=== PATIENT | female | born 1990 | race American Indian/Alaskan Native ===

== ENCOUNTER 2018-11-11 11:14 | Emergency (ER) | payer OTHER ==
--- NOTE | 2018-11-11 11:21 | Emergency Department Report ---
Blank Doc - Documentation Documentation: 28 y o female presents for vaginal d/c, malodourous Denies history of previous otitis ordered. patient to be evaluated at [facility]
[2018-11-11 11:27] VITALS: BP 113/64
[2018-11-11 12:02] LABS: Bacteria,Urine 1+ /HPF (Negative); Bilirubin,Urine NEG (Negative); Blood,Urine NEG (Negative); Color,Urine Yellow (Yellow); Mucus,Urine 2+ /HPF; Protein,Urine <15 mg/dL mg/dL (Negative)
[2018-11-11 12:07] LABS: HCG Qualitative,Urine Negative (Negative)
--- NOTE | 2018-11-11 12:19 | Emergency Department Report ---
ED Female HPI - General Chief complaint: Urogenital-Female Stated complaint: VAGINAL DISCHARGE/CRAMPING Time Seen by Provider: 11/11/18 11:19 Source: patient Mode of arrival: Ambulatory Limitations: No Limitations - History of Present Illness Initial comments: This is a 28-year-old female presents to the emergency room with foul smelling vaginal discharge for 2 days. Patient's last period was 10/26/2018, A0. Patient states she douched twice with no improvement of symptoms. She denies pelvic pain, back pain, nausea or vomiting, hematuria, urinary frequency, urgency, or dysuria. MD Complaint: vaginal discharge Onset/Timin -: days(s) Location: labia Radiation: non-radiating Severity: mild Severity scale (0 -10): 0 Consistency: constant Improves with: none Worsens with: urination Are you Now?: No Last Menstrual Period: 10/26/18 EDC: 08/02/19 Associated Symptoms: vaginal discharge. denies: vaginal bleeding, abdominal pain, nausea/vomiting, fever/chills, headaches, loss of appetite, dysuria, hematuria, rash, seizure, shortness of breath, syncope, weakness - Related Data Sexually active: Yes : 4 Para: 4 A: 0 Allergies Allergy/AdvReac Type Severity Reaction Status Date / Time No Known Allergies Allergy Unverified 11/11/18 11:16 ED Review of Systems ROS: Stated complaint: VAGINAL DISCHARGE/CRAMPING Other details as noted in HPI Constitutional: denies: chills, fever Respiratory: denies: cough, shortness of breath, wheezing Cardiovascular: denies: chest pain, palpitations Gastrointestinal: denies: abdominal pain, nausea, diarrhea Genitourinary: discharge. denies: urgency, dysuria Musculoskeletal: denies: back pain, joint swelling, arthralgia Skin: denies: rash, lesions Neurological: denies: headache, weakness, paresthesias Psychiatric: denies: anxiety, depression ED Past Medical Hx - Past Medical History Previous Medical History?: No - Surgical History Past Surgical History?: No - Social History Smoking Status: Never Smoker Substance Use Type: None ED Physical Exam - General Limitations: No Limitations General appearance: alert, in no apparent distress - Respiratory Respiratory exam: Present: normal lung sounds bilaterally. Absent: respiratory distress - Cardiovascular Cardiovascular Exam: Present: regular rate, normal rhythm. Absent: systolic murmur, diastolic murmur, rubs, gallop - GI/Abdominal GI/Abdominal exam: Present: soft, normal bowel sounds. Absent: distended, tenderness, guarding, rebound, rigid, organomegaly - External exam: Present: normal external exam Speculum exam: Present: vaginal discharge (malodorous frothy yellowish discharge). Absent: erythema, cervical discharge, vaginal bleeding, foreign body, tissue, laceration Bi-manual exam: Present: normal bi-manual exam - Back Exam Back exam: Absent: CVA tenderness (R), CVA tenderness (L) - Neurological Exam Neurological exam: Present: alert, oriented X3 - Psychiatric Psychiatric exam: Present: normal affect, normal mood - Skin Skin exam: Present: warm, dry, intact, normal color. Absent: rash ED Course Vital Signs 11/11/18 11:25 Temperature 98 F Pulse Rate 78 Respiratory 20 Rate Blood Pressure 113/64 O2 Sat by Pulse 100 Oximetry ED Medical Decision Making - Lab Data Lab Results 11/11/18 Range/Units 11:41 Urine Color Yellow (Yellow) Urine Turbidity Slightly-cloudy (Clear) Urine pH 5.0 (5.0-7.0) Ur Specific [place] 1.024 (1.003-1.030) Urine Protein <15 mg/dl (Negative) mg/dL Urine Glucose (UA) Neg (Negative) mg/dL Urine Ketones Neg (Negative) mg/dL Urine Blood Neg (Negative) Urine Nitrite Neg (Negative) Urine Bilirubin Neg (Negative) Urine Urobilinogen 2.0 (<2.0) mg/dL Ur Leukocyte Esterase Mod (Negative) Urine WBC (Auto) 5.0 (0.0-6.0) /HPF Urine RBC (Auto) 6.0 (0.0-6.0) /HPF U Epithel Cells (Auto) 15.0 H (0-13.0) /HPF Urine Bacteria (Auto) 1+ (Negative) /HPF Urine Mucus 2+ /HPF Urine HCG, Qual Negative (Negative) - Medical Decision Making Patient was examined by me. Vitals are stable and in no acute distress. Obtained a urinalysis, urine test, wet prep, gonorrhea and chlamydia. Urinalysis and test is unremarkable. The wet prep was positive for Trichomonas, negative yeast and clue cells. Empirically treated with Rocephin 250 mg IM, metronidazole 2 g by mouth, and azithromycin 1 g by mouth. Discharged home in stable condition. Discussed prevention options. F/U with PCP or Health Department. Critical care attestation.: If time is entered above; I have spent that time in minutes in the direct care of this critically ill patient, excluding procedure time. ED Disposition Clinical Impression: STD exposure, Vaginal discharge, Acute cervicitis, Trichomoniasis of vagina Disposition: TO HOME OR SELFCARE Is pt being admited?: No Does the pt Need Aspirin: No Condition: Stable Instructions: Cervicitis (ED), Trichomoniasis (ED), Safe Sex (ED), Sexually Transmitted Diseases (ED) Additional Instructions: Avoid drinking alcohol while taking antibiotics and for 24 hours after completion. Continue safe sexual intercourse. Follow up with Primary Care Provider or health department. Referrals: MACK FLOREZ MD [Primary Care Provider] - 3-5 Days [facility] [Outside] - 3-5 Days [facility] [Outside] - 3-5 Days [facility] [Outside] - 3-5 Days [facility] [Outside] - 3-5 Days Forms: STI Treatment and Prevention Time of Disposition: 13:26
[2018-11-11] MEDS ORDERED: ROCEPHIN IM ONE (13:23)
[2018-11-11] MEDS ORDERED: ZITHROMAX PO ONE (13:23)
[2018-11-11] MEDS ORDERED: XYLOCAINE 1% MPF 5 mL INFILTRATI ONE (13:23)
[2018-11-11] MEDS ORDERED: FLAGYL PO ONE (13:23)
== END 2018-11-11 14:06 | disposition home or self-care (01) ==
LOC: ED 11:14
DX: N72 Inflammatory disease of cervix uteri (principal); A59.01 Trichomonal vulvovaginitis; Z20.2 Contact with and (suspected) exposure to infections with a predominantly sexual mode of transmission
CPT/HCPCS: 81001; 81025; 87210; 87591; 96372; 99284; J0696

== ENCOUNTER 2019-06-20 20:22 | Emergency (ER) | payer SELFPAY | END 2019-06-21 01:25 | disposition left against medical advice (07) | LOC: ED 20:22 | DX: R51 Headache (principal); Z53.21 Procedure and treatment not carried out due to patient leaving prior to being seen by health care provider ==

== ENCOUNTER 2020-10-02 17:38 | Emergency (ER) | payer MEDICAID ==
[2020-10-02] MEDS ORDERED: IBUPROFEN 800 MG TAB PO ONE (18:52)
--- NOTE | 2020-10-02 19:24 | XRay Report ---
XR knee 1-2V RT INDICATION / CLINICAL INFORMATION: MAIN: injury fall today. COMPARISON: None available. FINDINGS: BONES/JOINT(S): There is a mildly displaced fracture of the lateral tibial plateau. Large lipohemarth rosis noted. SOFT TISSUES: No significant abnormality. ADDITIONAL FINDINGS: None. Signer Name: Manan Schaffer MD Signed: 10/02/2020 7:20 PM Workstation Name: [id number]
[2020-10-02] MEDS ORDERED: fentaNYL 100 MCG/2 ML INJ IV ONE ×2 (19:50→20:48)
[2020-10-02] MEDS ORDERED: ONDANSETRON 4 MG/2 ML INJ IV ONE (19:50)
[2020-10-02] MEDS ORDERED: fentaNYL 100 MCG/2 ML INJ ONE (19:51)
--- NOTE | 2020-10-02 20:04 | Emergency Department Report ---
HPI - General Chief Complaint: Extremity Injury, Lower Time Seen by Provider: 10/02/20 19:49 - HPI HPI: Room 17 The patient is a 29-year-old female present with a chief complaint of right knee pain. Patient states just prior to arrival she was playing with her children when she fell from standing injuring her right knee. Patient denies loss of consciousness. Patient gives her pain a score of 10/10 ED Past Medical Hx - Past Medical History Previous Medical History?: No - Surgical History Past Surgical History?: No - Family History Family history: no significant - Social History Smoking Status: Never Smoker Substance Use Type: None (Denies illicit drug use) - Medications Home Medications: Home Medications Medication Instructions Recorded Confirmed Last Taken Type Cyclobenzaprine [Flexeril] 10 mg PO TID PRN #20 tablet 10/02/20 Unknown Rx Ibuprofen [Motrin 800 MG tab] 800 mg PO Q8HR PRN #20 tablet 10/02/20 Unknown Rx oxyCODONE /ACETAMINOPHEN [Percocet 1 - 2 tab PO Q6HR PRN #20 tablet 10/02/20 Unknown Rx 5/325] ED Review of Systems ROS: Stated complaint: RIGHT LEG INJURY Other details as noted in HPI Constitutional: no symptoms reported Eyes: denies: eye pain ENT: denies: throat pain Respiratory: no symptoms reported Cardiovascular: denies: chest pain Endocrine: no symptoms reported Gastrointestinal: denies: abdominal pain Musculoskeletal: arthralgia Neurological: denies: headache Physical Exam - Physical Exam Physical Exam: GENERAL: The patient is well-developed well-nourished female lying on stretcher holding right knee appearing to be in moderate discomfort HEENT: Normocephalic. Atraumatic. Extraocular motions are intact. Patient has moist mucous membranes. NECK: Supple. Trachea midline CHEST/LUNGS: Clear to auscultation. There is no respiratory distress noted. HEART/CARDIOVASCULAR: Regular. There is no tachycardia. There is no gallop rub or murmur. 2+ right DP ABDOMEN: Abdomen is soft, nontender. Patient has normal bowel sounds. There is no abdominal distention. SKIN: There is no rash. There is edema of the right knee. There is no diaphoresis. NEURO: The patient is awake, alert, and oriented. The patient is cooperative. The patient has no focal neurologic deficits. The patient has normal speech MUSCULOSKELETAL: There is swelling and tenderness of the right knee. ED Course - Reevaluation(s) Reevaluation #1: 10/02/20 20:14 Patient improved and relaxed after pain medication administration. Patient updated on orthopedic surgeons plan - Consultations Consultation #1: 10/02/20 20:00 Ortho paged 10/02/20 20:09 Case discussed with and images with x-ray reading sent to orthopedic surgeon Dr. Arceo. States patient may be placed in a knee immobilizer and discharged with crutches to follow-up in office as an outpatient. Will need surgery. Recommends obtaining CT of the knee prior to discharge ED Medical Decision Making - Radiology Data Radiology results: report reviewed (Right knee x-ray, CT lower extremity), image reviewed (Right knee x-ray, CT lower extremity) interpreted by me: Right knee [id number] fracture [address] [address] XRay Report Signed Patient: JOSE KEE MR#: [id number] : 1990 Acct:[id number] Age/Sex: 29 / F ADM Date: 10/02/20 Loc: ED Attending Dr: Ordering Physician: PETRA ABARCA NP Date of Service: 10/02/20 Procedure(s): XR knee 1-2V RT Accession Number(s): [id number] cc: PETRA ABARCA NP Fluoro Time In Minutes: XR knee 1-2V RT INDICATION / CLINICAL INFORMATION: MAIN: injury fall today. COMPARISON: None available. FINDINGS: BONES/JOINT(S): There is a mildly displaced fracture of the lateral tibial plateau. Large lipohemarthrosis noted. SOFT TISSUES: No significant abnormality. ADDITIONAL FINDINGS: None. Signer Name: Manan Schaffer MD Signed: 10/02/2020 7:20 PM Workstation Name: [id number] Transcribed By: NICK Dictated By: Manan Schaffer MD Electronically Authenticated By: Manan Schaffer MD Signed Date/Time: 10/02/201919 DD/ 18 TD/TT: Print Cancel [address] [address] Cat Scan Report Signed Patient: JOSE KEE MR#: [id number] : 1990 Acct:[id number] Age/Sex: 29 / F ADM Date: 10/02/20 Loc: ED Attending Dr: Ordering Physician: MARY CHRISTIANSON MD Date of Service: 10/02/20 Procedure(s): CT lower extremity RT wo con Accession Number(s): [id number] cc: MARY CHRISTIANSON MD CT lower extremity RT wo con INDICATION: Tibial plateau fracture. TECHNIQUE: All CT scans at this location are performed using CT dose reduction for ALARA by means of automated exposure control. COMPARISON: X-rays done earlier today. FINDINGS: There is a comminuted fracture of the lateral tibial plateau in the knee with about 4 mm of articular surface incongruity in the predominant medial and lateral fracture fragments. There is also a minimally displaced fibular head fracture. There is a large lipohemarthrosis in the knee. IMPRESSION: 1. Comminuted fracture of the lateral tibial plateau with associated mildly displaced fibular head fracture. Signer Name: Manan Schaffer MD Signed: 10/02/2020 8:44 PM Workstation Name: [id number] Transcribed By: NICK Dictated By: Manan Schaffer MD Electronically Authenticated By: Manan Schaffer MD Signed Date/Time: 10/02/202043 DD/ 42 TD/TT: Print Cancel - Differential Diagnosis Tibial plateau fracture, fibula fracture Critical care attestation.: If time is entered above; I have spent that time in minutes in the direct care of this critically ill patient, excluding procedure time. ED Disposition Clinical Impression: Fracture of right tibial plateau Disposition: DC-01 TO HOME OR SELFCARE Is pt being admited?: No Does the pt Need Aspirin: No Condition: Stable Instructions: Displaced Tibial Plateau Fracture, How to Use a Knee Brace Additional Instructions: Return to the emergency department should you develop worsening symptoms, inability to tolerate food or liquids, high fever or any other concerns Prescriptions: Cyclobenzaprine [Flexeril] 10 mg PO TID PRN #20 tablet PRN Reason: Muscle Spasm Ibuprofen [Motrin 800 MG tab] 800 mg PO Q8HR PRN #20 tablet PRN Reason: Pain, Moderate (4-6) oxyCODONE /ACETAMINOPHEN [Percocet 5/325] 1 - 2 tab PO Q6HR PRN #20 tablet PRN Reason: Pain Referrals: PRIMARY CARE, [Primary Care Provider] - 3-5 Days MAGDALENA ARCEO MD [Staff Physician] - [facility] (Dr. Arceo is an orthopedic surgeon and states that you will need surgical repair of your tibial plateau fracture. Please follow-up with him immediately for further management) Time of Disposition: 21:11
--- NOTE | 2020-10-02 20:48 | Cat Scan Report ---
CT lower extremity RT wo con INDICATION: Tibial plateau fracture. TECHNIQUE: All CT scans at this location are performed using CT dose reduction for ALARA by means of automated e xposure control. COMPARISON: X-rays done earlier today. FINDINGS: There is a comminuted fracture of the lateral tibial plateau in the knee with about 4 mm of articular surface incongruity in the predominant medial and lateral fracture fragments. There is also a minimally displaced fibular head fracture. There is a large lipohemarthrosis in the knee. IMPRESSION: 1. Comminuted fracture of the lateral tibial plateau with associated mildly displaced fibular head fr acture. Signer Name: Manan Schaffer MD Signed: 10/02/2020 8:44 PM Workstation Name: [id number]
[2020-10-02 22:48] VITALS: BP 104/68
== END 2020-10-02 21:40 | disposition home or self-care (01) ==
LOC: ED 17:38
DX: S82.141A Displaced bicondylar fracture of right tibia, initial encounter for closed fracture (principal); Z79.899 Other long term (current) drug therapy; W18.39XA Other fall on same level, initial encounter; Y93.89 Activity, other specified; Y92.89 Other specified places as the place of occurrence of the external cause; Y99.8 Other external cause status
CPT/HCPCS: 29505; 73560; 73700; 96374; 96375; 96376; 99284; J2405; J3010

== ENCOUNTER 2020-10-11 11:12 | Day surgery (SDC) | payer MEDICAID ==
[~2020-10-11 11:12] MED LIST: ACETAMINOPHEN 500 MG TAB PO SCH; CELECOXIB 200 MG CAP PO NR; LACTATED RINGERS 1,000 ML IV SCH; SCOPOLAMINE TRANSDERMAL PATCH 72 HR TD NR; ceFAZolin/Water 2 GM/20 ML 2 GM/20 ML SYRINGE IV NR
[2020-10-11] MEDS: GABAPENTIN 300 MG CAP PO NR ×2 (11:55→22:03)
[2020-10-11] MEDS ORDERED: ONDANSETRON 4 MG/2 ML INJ IV PRN (12:25)
[2020-10-11] MEDS ORDERED: oxyCODONE /ACETAMINOPHEN 5-325MG TAB PO PRN (12:25)
--- NOTE | 2020-10-11 12:25 | Anesthesia Day of Surgery ---
Anesthesia Day of Surgery - Day of Surgery Patient Examined: Yes Patient H&P Reviewed: Yes Patient is NPO: Yes
--- NOTE | 2020-10-11 12:25 | Anesthesia Consultation ---
Anesthesia Consult and Med Hx Date of service: 10/11/20 - Airway Anesthetic Teeth Evaluation: Good ROM Head & Neck: Adequate Mental/Hyoid Distance: Adequate Mallampati Class: Class II Intubation Access Assessment: Probably Good - Pre-Operative Health Status ASA Pre-Surgery Classification: ASA1 Proposed Anesthetic Plan: General - Pulmonary Hx Smoking: No Hx Respiratory Symptoms: No Hx Sleep Apnea: No (KELLI NEGATIVE RISK) - Cardiovascular System Hx Hypertension: No - Central Nervous System CVA: No - Endocrine Hx Renal Disease: No Hx Liver Disease: No Hx Insulin Dependent Diabetes: No Hx Non-Insulin Dependent Diabetes: No Hx Thyroid Disease: No - Other Systems Hx Obesity: No - Additional Comments Anesthesia Medical History Comments: No prior GA. No FHx anesthetic complications.
[2020-10-11] MEDS: MIDAZOLAM 2 MG/2 ML INJ IV NR ×2 (12:39→13:58)
[2020-10-11] MEDS: HYDROmorphone 1 MG/1 ML INJ IV PRN ×6 (12:50→19:40)
[2020-10-11] MEDS ORDERED: LIDOCAINE MPF (2%) 20 MG/1 ML VIAL 5 ML ONE (14:53)
[2020-10-11] MEDS ORDERED: ONDANSETRON 4 MG/2 ML INJ ONE (14:53)
[2020-10-11] MEDS ORDERED: HYDROmorphone 1 MG/1 ML INJ ONE ×2 (14:53→18:16)
[2020-10-11] MEDS ORDERED: propofoL 200 MG/20 ML VIAL IV ONE (14:54)
[2020-10-11] MEDS ORDERED: dexAMETHasone 20 MG/5 ML VIAL ONE (16:37)
[2020-10-11] MEDS ORDERED: BUPIVACAINE/PF (0.5%) 5 MG/1 ML 10 ML VIAL INFILTRATI ONE ×2 (18:30→18:34)
--- NOTE | 2020-10-11 18:47 | Procedure Note ---
Date of procedure: 10/11/20 Pre-op diagnosis: Displaced right lateral tibial plateau fracture Post-op diagnosis: same Procedure: Closed reduction insertion locked lateral tibial plate right tibial plateau Procedure The patient was brought to the OR on the hospital bed she was then transferred onto the OR table supine following this she was given general anesthesia and intubated next the right lower extremity was prepped and draped in the usual sterile manner. A timeout procedure was done to identify the patient and the correct operative site using C arm fluoroscopy the patient's left leg was exsanguinated followed by inflation of the pneumatic tourniquet to 300 mmHg again using C-arm visualization guide guidewire was placed along the proximal aspect of the tibia and under c-arm direction the guidewire was inserted from the lateral cortex into the lateral tibial plateau this was done to stabilize the fracture next a transverse incision was made parallel to the joint line approximately 1 cm distal this is taken down sharply through skin subcu onto the periosteum next a periosteal elevator was used to strip the soft tissue from the bone and surrounding subcutaneous tissue to create a tunnel for lateral locked plate next a 6 hole 4.5 locked lateral tibial plate was applied to the proximal tibia under C-arm visualization and secured by way of a K wire next the plate was stabilized using 4.5 locked screws distally this was followed by sequential reaming and tapping screws proximally as well as along the plate itself AP lateral views were obtained showing good reduction of the fracture and placement of the plate and screws the wound was then copiously irrigated and was closed in a standard routine fashion the patient tolerated the procedure there were no complications Anesthesia: GETA Surgeon: MAGDALENA BETH (Lori Reeder, 1st assist) Estimated blood loss: minimal Pathology: none Condition: stable Disposition: PACU
[2020-10-11] MEDS ORDERED: LACTATED RINGERS 1,000 ML ONE (18:49)
[2020-10-11] MEDS ORDERED: BUPIVACAINE/PF (0.25%) 2.5 MG/ML 30 ML VIAL INFILTRATI ONE (19:14)
[2020-10-11] MEDS: MIDAZOLAM 2 MG/2 ML INJ IV PRN ×2 (19:15→22:06)
[2020-10-11] MEDS ORDERED: LIDOCAINE (1%) 10 MG/1 ML VIAL 20 ML MDV ONE (19:17)
[2020-10-11] MEDS ORDERED: fentaNYL 100 MCG/2 ML INJ ONE (19:21)
--- NOTE | 2020-10-11 20:09 | Progress Note ---
Regional Anesthesia Block - Regional Anesthesia Block Start Time: 19:23 Stop Time: 19:40 Performed By:: RENÉE IBANEZ Procedure: Right Popliteal/adductor canal block Block performed in PACU for post op analgesia per surgeon request. Standard ASA monitors + O2 via NC applied. Timeout done. See MAR for IV medications given. Right sciatic n. and associated landmarks in the popliteal fossa identified with ultrsound. Chloroprep skin prep applied and skin localized with 1.5cc lidocaine 1%. Block needle advanced under ultrasound guidance and 15cc bupivicaine 0.25% injected in 5cc increments with negative aspiration, no parasthesias. Next, rig ht saphenous n. and associated landmarks identified in the adductor canal with ultrasound. Chloroprep skin prep applied and skin localized with 1.5cc lidocaine 1%. Block needle advanced under ultrasound guidance and 15cc bupivicaine 0.25% injected in 5cc increments with negative aspiration, no parasthesias. Patient reported improved pain after procedure. No immediate complications noted. Patient and mother advised of fall risk after block and that she should have assistance with ambulation until sensation has returned completely.
--- NOTE | 2020-10-11 20:10 | Post Anesthesia Evaluation ---
- Post Anesthesia Evaluation Patient Participated: Yes Airway Patent: Yes Stable Respiratory Function: Yes Nausea/Vomiting: No Temp > 96.8F: Yes Pain Manageable: Yes Adequeate Hydration: Yes Anesthesia Complications: No Other Comments: Regional block perfomed in PACU for post op analgesia. See block note in EMR.
--- NOTE | 2020-10-11 20:22 | XRay Report ---
XR tibia fibula 2V RT INDICATION / CLINICAL INFORMATION: Tibial plateau fracture. COMPARISON: None available. FINDINGS: ORIF of lateral tibial plateau fracture Fluoroscopy time: 2.5 minutes. Fluoroscopic images: 4. IMPRESSION: ORIF of lateral tibial plateau fracture. Conventional knee radiograph may be helpful for further eval uation. Signer Name: Neil Patterson MD FACR Signed: 10/11/2020 8:18 PM Workstation Name: [id number]
[2020-10-11 22:20] VITALS: BP 129/64
[2020-10-11] MEDS ORDERED: fentaNYL 100 MCG/2 ML INJ IV ONE (23:05)
[2020-10-12] MEDS ORDERED: MIDAZOLAM 2 MG/2 ML INJ IV NR (06:00)
== END 2020-10-11 11:13 | disposition home or self-care (01) ==
LOC: OR 11:12
PROVIDERS: ATTEND Orthopaedic Surgery
DX: S82.141A Displaced bicondylar fracture of right tibia, initial encounter for closed fracture (principal); Z79.899 Other long term (current) drug therapy; Z98.891 History of uterine scar from previous surgery; X58.XXXA Exposure to other specified factors, initial encounter; Y93.89 Activity, other specified; Y92.89 Other specified places as the place of occurrence of the external cause; Y99.8 Other external cause status
CPT/HCPCS: 27532; 36415; 73590; 84703; C1713; C1769; J0690; J1100; J1170; J2250; J2405; J2704; J3010; J7120

== ENCOUNTER 2020-10-11 23:54 | Emergency (ER) | payer MEDICAID | END 2020-10-12 02:49 | disposition left against medical advice (07) | LOC: ED 23:54 | DX: M96.830 Postprocedural hemorrhage of a musculoskeletal structure following a musculoskeletal system procedure (principal); Z53.21 Procedure and treatment not carried out due to patient leaving prior to being seen by health care provider ==